=== PATIENT | male | born 2000 | race Two or more races ===

== ENCOUNTER 2025-05-20 17:29 | Emergency (ER) | payer OTHER ==
[~2025-05-20] VITALS: Ht 170.2 cm; Wt 77.0 kg
[2025-05-20 17:57] VITALS: BP 110/65; PULSE 67; RESP 18; TEMP 98.5; O2SAT 99
== END 2025-05-20 18:30 | disposition home or self-care (01) ==
LOC: EMS 17:29
DX: R19.7 Diarrhea, unspecified (principal); Z88.0 Allergy status to penicillin
CPT/HCPCS: 99282; Z7502